=== PATIENT | female | born 1950 | race Caucasian/White ===

== ENCOUNTER → 2017-10-02 12:13 | Outpatient (CLI) | payer MEDICARE, SELFPAY ==
--- NOTE | 2017-10-01 16:30 | FLU_PTH ---
PATIENT: JACINTO HENRY [facility] U#:[id number] AGE/SX: 74/F ROOM: RE10/02/[address]: Dr. Jyotsna Ricketts MD : 1950 BED: DIS: SPEC #: [id number] RECD: 10/02/17 11:48 STATUS: ADRIA ROCIO #: [id number] TERE: 10/01/17 16:[address]: Jyotsna Ricketts DEPT: CYTOLOGY RECD BY: Deandre Garibay Tissues: A - Thyroid gland, NOS B - Thyroid gland, NOS Procedures: Pap Stain (control) Special Stain Group II Surgery Specimen Level IV Cell Block Cytospin Fluid Cytology Other HEADER OPERATION: Ultrasound-guided fine needle aspiration right thyroid PRE-OP DIAGNOSIS: Right thyroid nodule TISSUE SUBMITTED: A ? FNA right thyroid fluid for cytology, B ? FNA right thyroid 6 slides DIAGNOSIS CYTOLOGY A. Fine needle aspiration, right thyroid nodule (cytospin and cell block): Blood and rare benign follicular cells. B. Fine needle aspiration, right thyroid nodule (smears): Adequate for evaluation. Negative, consistent with benign follicular nodule. AM:colin 10/03/17 COMMENT A. The specimen primarily consists of blood. Case has been reviewed in consultation with Dr. Cerna who concurs with the above diagnosis. IDC:SJ CYTOLOGY STUDY Slides are reviewed. CYTOLOGY GROSS A - Received is 100 ml of brown cloudy fluid labeled with the patient's name and and designated per the requisition as right thyroid. Submitted for cytology preparation including cell block. B - Received are six smears labeled with the patient's name and designated per the requisition as right thyroid. Submitted for staining. / 10/02/17 TC:5 CPT: 99033, 65013, 14861
== END ==
PROVIDERS: Visit Provider Surgery
DX: E04.1 Nontoxic single thyroid nodule (principal)
CPT/HCPCS: 88108; 88161; 88305; 88313

== ENCOUNTER 2020-05-20 07:05 | Outpatient (RCR) | payer MEDICARE, SELFPAY ==
[2020-05-20] MEDS: COVID-19 VACC, MRNA(PFIZER)/PF 30 MCG/0.3 ML SYRINGE IM (17:59)
[2020-06-10] MEDS: COVID-19 VACC, MRNA(PFIZER)/PF 30 MCG/0.3 ML SYRINGE IM (17:19)
== END 2020-08-24 23:59 ==
LOC: IMMUN 07:05
PROVIDERS: PCP Family Medicine; Visit Provider Family Medicine
DX: Z23 Encounter for immunization (principal)
CPT/HCPCS: 0001A; 0002A; 91300

== ENCOUNTER 2021-03-24 08:31 | Outpatient (CLI) | payer MEDICARE, SELFPAY ==
[2021-03-24 08:38] VITALS: BP 139/83; PULSE 62; RESP 16; TEMP 36.6; O2SAT 98; BMI 24.3
[2021-03-24] MEDS: 0.9% Saline Lock 10 ML Syringe IV (08:44)
[2021-03-24 09:40] VITALS: BP 129/75; PULSE 108; RESP 18; TEMP 36.9; O2SAT 100
[2021-03-24 10:24] VITALS: BP 123/76; PULSE 54; RESP 16; TEMP 36.9; O2SAT 100
== END 2021-03-24 23:59 | disposition home or self-care (01) ==
LOC: MS3OUT 08:33 → MS3 08:33
PROVIDERS: Referring Provider Nurse Practitioner Adult Health; Visit Provider Nurse Practitioner Adult Health
DX: Z23 Encounter for immunization (principal); U07.1 COVID-19
CPT/HCPCS: J7050; M0243; A4216; Q0244

== ENCOUNTER 2024-07-10 08:26 | Emergency (ER) | payer MEDICARE, SELFPAY ==
[2024-07-10 08:27] VITALS: BP 123/81; PULSE 92; RESP 14; TEMP 36.1; O2SAT 90; BMI 26.2
--- NOTE | 2024-07-10 08:47 | CT_ITS ---
PROCEDURE: ABDOMEN/PELVIS W IV CONT ONLY 07/10/2024 REASON FOR EXAM: POST PRANDIAL LUQ ABD PAIN, N/V TECHNIQUE: Abdomen and pelvis CT with intravenous contrast. Coronal and Sagittal reconstruction series were provided. PATIENT PREPARATION: Per protocol ORAL CONTRAST TYPE: None. CONTRAST: Isovue-300 VOLUME: 100 mL One or more dose reduction techniques were used (e.g., Automated exposure control, adjustment of the mA and/or kV according to patient size, use of iterative reconstruction technique. RADIATION DOSE SUMMARY: CTDlvol: 10 mGy DLP: 503.63 mGycm COMPARISON: None FINDINGS: Lung bases: Mild dependent atelectasis Liver: Normal size. No mass. Gallbladder: Unremarkable Spleen: Normal size. Pancreas: Normal size without evidence of mass surrounding inflammation or ductal dilation. Adrenals: Kidneys: 8.6 mm calculus at the left ureteropelvic junction causing [id number] degree of left hydronephrosis. There is evidence of left perinephric stranding. Small cyst is seen in the lower pole of the left kidney. 1.7 cm cyst in the posterior upper pole of the right kidney. Bladder: Unremarkable Reproductive Organs: The endometrium measures 26 mm. This is thickened for the patient's postmenopausal state. Correlation with sonogram recommended. Bowel: Colonic diverticulosis without diverticulitis. Appendix: The appendix is not identified. There is no inflammatory process identified in the right lower quadrant to suggest appendicitis. Lymph nodes: Unremarkable. Vasculature: Mild diffuse atherosclerotic calcifications are noted. 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 Peritoneum / Retroperitoneum: Unremarkable Bones: Degenerative changes of the spine. CT/Abdomen/Pelvis W IV Cont ONLY IMPRESSION: 8.6 mm calculus at the left ureteropelvic junction causing [id number] deg ree of left hydronephrosis. Left perinephric stranding. Small cysts in both kidneys. Thickened endometrium for the patient's postmenopausal state. Reading Location: [place] [address]
[2024-07-10] MEDS: 0.9% Normal Saline (1000mL) 1,000 ML 999 ML IV (08:50)
[2024-07-10 08:55] LABS: Absolute Lymphocyte Count 0.56 X10^3/uL (0.83-4.51); Absolute Neutrophil Count 7.1 X10^3/uL (2.0-7.7); Basophil# 0.07 X10^3/uL; Basophil% 0.8 % (0-1); Eosinophil# 0.02 X10^3/uL; Eosinophils% 0.2 % (0-5); Hematocrit 44.5 % (37-47); Hemoglobin 14.6 g/dL (12.0-15.0); Lymphocyte # 0.56 X10^3/ul (0.83-4.51); Lymphocyte % 6.5 % (19-41); Mean Corp Hgb Conc 32.8 g/dL (32-36); Mean Corpuscular Hgb 30.6 pg (27.0-32.0); Mean Corpuscular Volume 93.3 fL (81-99); Mean Platelet Vol. 9.2 fl (6.2-12.0); Monocyte# 0.72 X10^3/uL; Monocyte% 8.4 % (0-10); NRBC Flagged by Analyzer 0 % (0-5); Neutrophil # 7.14 X10^3/uL (2.7-7.7); Neutrophil % 83.6 % (47-70); POSITIVE DIFFERENTIAL YES; Platelet Count 192 K/mm3 (150-450); RBC Distribution Width CV 12.7 % (11.6-14.6); RBC Distribution Width SD 43.5 fl (35.1-43.9); Red Blood Count 4.77 M/mm3 (4.2-5.4); White Blood Count 8.6 K/mm3 (4.4-11.0)
--- NOTE | 2024-07-10 09:11 | EDS_ITS ---
HPI HPI - GI History of Present Illness Chief Complaint: Abd Pain Informant: patient Narrative Narrative: Patient has a 74-year-old female with history of rheumatoid arthritis presenting with 2 days of left upper quad abdominal pain. It is postprandial in nature. Patient states it happens every time she eats or drinks. As she is the last about 30 minutes to an hour afterwards. It does not radiate. She describes the pain as sharp. Does not change with movement. She does have associated nausea but when she saw PA through her PCP office 2 days ago she was prescribed Zofran which has helped with that. Does not take anything for the pain. Notes that her last bowel movement was a couple days ago but attributes that to not eating much. Denies any history of any abdominal surgeries. Denies any lightheadedness or dizziness. Denies any urinary symptoms. Denies any black or blood in her stool. Denies any chest pain or shortness of breath. No other complaints or concerns reported at this time. PFSH PFS Medical History Left upper quadrant abdominal pain Nausea & vomiting Right shoulder strain Strain of right rotator cuff capsule Rheumatoid arthritis Home Medications ?Medication ?Instructions ?Recorded ?Last Taken ?Type multivitamin 1 tab PO QDAY 07/08/24 Unkno wn History ondansetron HCl 4 mg tablet 4 mg PO Q8H PRN nausea and 07/08/24 Unknown Rx vomiting #7 tabs Allergy/AdvReac Type Severity Reaction Status Date / Time No Known Allergies Allergy Verified 07/10/24 08:27 Social History Smoking Status: Never smoker ROS ROS ED Constitutional Constitutional ED: Denies chills or fever(s) Cardiovascular Cardiovascular: Denies chest pain Respiratory/Chest Respiratory/Chest: Denies cough Gastrointestinal Gastrointestinal: Reports abdominal pain, constipation and nausea Musculoskeletal Musculoskeletal: Denies arthralgias, back pain or myalgias Integumentary Denies rash Neurologic Neurologic: Denies weakness Hematologic/Lymphatic Hematologic/Lymphatic: Denies easy bleeding or easy bruising EXAM Physical Exam Const Vital Signs: 07/10/24 08:27 07/10/24 10:57 Temperature 97 F L Temperature Source Temporal Pulse Rate 92 Respiratory Rate 14 Blood Pressure 123/81 H 107/93 H Blood Pressure Mean 95 97 Pulse Ox 90 Oxygen Delivery Method Room Air Positive well nourished and well developed General Appearance ED: well developed; Negative for pallor HEENT Reports dry mucous membranes Mouth ED: Yes dry mucous membranes Mouth: dry mucous membranes Eyes General Eye ED: Negative for scleral icterus Neck supple Resp normal respiratory effort and clear to auscultation bilaterally Cardio regular rate and regular rhythm GI GI Narrative: Patient points to her left upper quadrant/left flank as the area of pain however she actually is tenderness during Waddell sign in the right upper quadrant on physical exam. Inspection: Negative for abdominal distention Auscultation: normoactive bowel sounds Palpation: soft and tender RUQ and Waddell's sign Back/Spine no CVA tenderness Extremity full ROM Neuro moves all extremities Sensorium / Orientation: alert Motor Exam: Negative for general weakness Psych mental status grossly normal and thought process normal Skin no wounds General Skin Exam: Negative for jaundice or pallor MDM MDM MDM Narrative Medical decision making narrative: Patient evaluated for intermittent left flank pain that seems to be worse postprandially. She is currently pain-free. Could take the pain anymore is unable to really eat or drink much because of the pain that she came in. Vital signs normal emergency room. Differential includes renal colic, cholecystitis, small bowel obstruction, volvulus, gastritis as well as electrolyte abnormality/NIALL. Patient given IV fluids in the emergency room. CBC largely normal. No signs of infection or acute anemia. CMP does show an elevated creatinine of 1.81. Patient does not have any known history of renal insufficiency and suspect this is an NIALL. Other electrolytes largely normal. BUN is also mildly elevated at 28. Urinalysis largely normal not consistent with infection. CT of the abdomen pelvis with IV contrast shows an 8.6 mm calculus at the left UPJ causing mild to moderate degree of left hydronephrosis. There is associated left perinephric stranding. There is also thickened endometrium for the patient's postmenopausal state which will require nonemergent outpatient follow-up. Patient will require admission for obstructed renal stone with associated NIALL. She is given a liter of IV fluids in the emergency room and started on 100 cc/h of maintenance fluid. Unfortunately we do not have urology coverage this week and patient will need to be transferred. She is accepted at [facility] by Dr. Winter. Lab Data Labs: Laboratory Results - last 24 hr 07/10/24 07/10/24 08:38 10:50 WBC 8.6 RBC 4.77 Hgb 14.6 Hct 44.5 MCV 93.3 MCH 30.6 MCHC 32.8 RDW Std Deviation 43.5 RDW Coeff of Lori 12.7 Plt Count 192 MPV 9.2 Immature Gran % (Auto) 0.500 Neut % (Auto) 83.6 H Lymph % (Auto) 6.5 L Moody % (Auto) 8.4 Eos % (Auto) 0.2 Baso % (Auto) 0.8 Absolute Neuts (auto) 7.1 Absolute Lymphs (auto) 0.56 L Nucleated RBC % 0 Sodium 137 Potassium 3.9 Chloride 102 Carbon Dioxide 22.3 Anion Gap 13 BUN 28 H Creatinine 1.81 H Estim Creat Clear Calc 25.50 L Est GFR (MDRD) Non-Af 29 L BUN/Creatinine Ratio 15.7 Glucose 110 H Calcium 9.3 Total Bilirubin 0.77 Direct Bilirubin 0.28 AST 25 ALT 15 Alkaline Phosphatase 95 Total Protein 7.5 Albumin 3.9 Globulin 3.7 Lipase 25 Urine Color Yellow Urine Clarity Clear Urine pH 5.0 Ur Specific Drayden 1.010 Urine Protein 15 H Urine Glucose (UA) Normal Urine Ketones 15 H Urine Occult Blood 10 H Urine Nitrite Negative Urine Bilirubin Negative Urine Urobilinogen Normal Ur Leukocyte Esterase 25 H Urine RBC 0-5 SEEN Urine WBC 0-5 SEEN Ur Squamous Epith Cells 0-5 SEEN Urine Bacteria 0 SEEN Urine Mucus 0 SEEN Radiography Diagnostic Testing: Clinical Impression(s) from Imaging Studies Abdomen/Pelvis CT 07/10/24 08:47 IMPRESSION: 8.6 mm calculus at the left ureteropelvic junction causing [id number]-[id number] degree of left hydronephrosis. Left perinephric stranding. Small cysts in both kidneys. Thickened endometrium for the patient's postmenopausal state. Reading Location: [place] [address] Discharge Plan Triage Chief Complaint: Abd Pain ED Provider: Tamar Solaon Dx/Rx/DC Orders Clinical Impression: Hydronephrosis of left kidney, Left ureteral calculus, NIALL (acute kidney injury) Prescriptions: No Action multivitamin Tablet 1 tab PO QDAY ondansetron HCl 4 mg tablet 4 mg PO Q8H PRN (Reason: nausea and vomiting) Qty: 7 0RF Primary Care Provider: Care Physician,No Primary Referrals: Care Physician,No Primary [Primary Care Provider] - Print Language: Mauritanian Disposition Disposition: Acute Care Hospital Discharge Location: [facility]
[2024-07-10 09:19] LABS: AST(SGOT) 25 U/L (<=31); Alanine Aminotransfer ALT/SGPT 15 U/L (<=34); Albumin, Serum 3.9 g/dL (3.4-4.8); Alkaline Phosphatase 95 U/L (35-104); Anion Gap 13 (5-15); BUN 28 mg/dL (4-19); BUN/Creat Ratio 15.7 RATIO (10-20); Bilirubin, Direct 0.28 mg/dL (0.00-0.30); Calcium,Total 9.3 mg/dL (7.6-11.0); Carbon Dioxide 22.3 mmol/L (21.0-32.0); Chloride 102 mmol/L (98-108); Creatinine, Serum 1.81 mg/dL (0.70-1.20); EST Glomerular Filtration Rate 29 (>60); Globulin 3.7 g/dL (2.2-4.2); Glucose 110 mg/dL (70-99); Lipase 25 U/L (13-75); Potassium 3.9 mmol/L (3.3-5.1); Protein, Total 7.5 g/dL (5.9-8.4); Sodium Level 137 mmol/L (133-145); Total Bilirubin 0.77 mg/dL (0.00-1.30)
[2024-07-10 10:57] VITALS: BP 107/93
[2024-07-10 11:01] LABS: Bacteria 0 SEEN /hpf (None Seen); Color, Urine Yellow (Yellow); Glucose, Dipstick Normal (Normal); Ketone-Dipstick 15 mg/dl (Negative); Leukocyte Esterase-Dipstick 25 /ul (Negative); Mucous, Urine 0 SEEN /hpf (<or=2+); Nitrite-Dipstick Negative (Negative); Occult Blood-Urine 10 /ul (Negative); Protein-Dipstick 15 mg/dl (Negative); Urine Bilirubin Dipstick Negative (Negative); Urine Clarity Clear (Clear); Urine Urobilinogen Normal (Normal)
[2024-07-10 11:18] LABS: Squamous Epithelial Cells - UA 0-5 SEEN /hpf (5-10); White Blood Cells 0-5 SEEN /hpf (0-5)
[2024-07-10 11:19] LABS: Red Blood Cells-Urine 0-5 SEEN /hpf (0-5)
--- NOTE | 2024-07-10 11:27 | PCA ---
CALLED [employer], DOESN'T TAKE HER INSURANCE, CALLED ANTONIA @[phone] FAXED FACE SHEET AND PUSHED IMAGES
[2024-07-10] MEDS: 0.9% Normal Saline (1000mL) 1,000 ML 100 ML IV (11:47)
[2024-07-10 12:26] VITALS: PULSE 74; RESP 18; O2SAT 97
--- NOTE | 2024-07-10 13:37 | PCA ---
ANTONIA HAS A BED !@[phone] BED 283 BED 2
[2024-07-10 14:10] VITALS: BP 130/68; PULSE 72; RESP 16; TEMP 36.6; O2SAT 99
== END 2024-07-10 14:15 | disposition short-term general hospital (02) ==
PROVIDERS: Emergency Provider Emergency Medicine; Visit Provider Emergency Medicine
DX: R10.12 Left upper quadrant pain (principal); N17.9 Acute kidney failure, unspecified; N13.2 Hydronephrosis with renal and ureteral calculous obstruction
CPT/HCPCS: 74177; 80048; 80076; 81001; 83690; 85025; 99284; Q9967